=== PATIENT | female | born 1955 | race Caucasian/White ===

== ENCOUNTER 2020-06-07 07:46 | Inpatient (IN) | payer OTHER, MEDICARE ==
[2020-06-07] MEDS ORDERED: SODIUM CHLORIDE 0.9% 1,000 ML IV STA ×5 (08:10→14:58)
[2020-06-07] MEDS ORDERED: IPRATROPIUM-ALBUTEROL 3 ML NEB INHALATION STA (08:12)
--- NOTE | 2020-06-07 08:16 | ED ---
Altered Mental Status HPI - General Chief Complaint: Altered Mental Status Stated Complaint: pain all over Time Seen by Provider: 06/07/20 08:00 Source: patient, family, RN notes reviewed Mode of arrival: wheelchair Limitations: no limitations - History of Present Illness Initial Comments: This is a 64-year-old female history of chronic left shoulder pain who apparently is in the process of being worked up for chronic pain who started developing some dyspnea yesterday he has gotten progressively worse patient is also decreased activity decrease oral intake becoming confused this morning. She denies any fevers chills nausea vomiting sweats cough she does state that she's thirsty. She was noted upon arrival to triage that she was dusky including nailbeds. No other complaints or modifying factors at this time she is a smoker. MD Complaint: altered mental status, decreased responsiveness, other - Related Data Home Medications Medication Instructions Recorded Confirmed Acetaminophen/Diphenhydramine 1 tab PO HS PRN 06/07/20 06/07/20 [Tylenol PM 500-25mg] Atorvastatin Calcium [Lipitor] 10 mg PO DAILY 06/07/20 06/07/20 Balsalazide Disodium [Colazal] 1,500 mg PO AC-TID 06/07/20 06/07/20 Ibuprofen [Motrin Ib] 200 mg PO Q8H PRN 06/07/20 06/07/20 Methadone HCl [Methadone Intensol] 130 mg PO DAILY 06/07/20 06/07/20 Pregabalin [Lyrica] 200 mg PO TID 06/07/20 06/07/20 Allergies Allergy/AdvReac Type Severity Reaction Status Date / Time No Known Allergies Allergy Verified 06/07/20 09:10 Review of Systems ROS Statement: Those systems with pertinent positive or pertinent negative responses have been documented in the HPI. ROS Other: All systems not noted in ROS Statement are negative. Past Medical History Additional Past Medical History / Comment(s): arthritis History of Any Multi-Drug Resistant Organisms: None Reported Additional Past Surgical History / Comment(s): feet surgery Past Psychological History: No Psychological Hx Reported Smoking Status: Current every day smoker Past Alcohol Use History: None Reported Past Drug Use History: None Reported General Exam - General Exam Comments Initial Comments: Is a well-developed well-nourished awake alert but lethargic female Limitations: no limitations General appearance: alert, lethargic Head exam: Present: atraumatic, normocephalic, normal inspection Eye exam: Present: normal appearance, PERRL, EOMI. Absent: scleral icterus, conjunctival injection, periorbital swelling ENT exam: Present: mucous membranes dry Neck exam: Present: normal inspection, full ROM, other (No stridor JVD or bruits ). Absent: tenderness, meningismus, lymphadenopathy Respiratory exam: Present: decreased breath sounds (Diminished breath sounds especially on the right). Absent: respiratory distress, wheezes, rales, rhonchi, stridor Cardiovascular Exam: Present: normal rhythm, tachycardia, normal heart sounds, other (Thready pulses). Absent: systolic murmur, diastolic murmur, rubs, gallop, clicks GI/Abdominal exam: Present: soft, normal bowel sounds. Absent: distended, tenderness, guarding, rebound, rigid Extremities exam: Present: full ROM. Absent: tenderness, normal capillary refill, pedal edema, joint swelling, calf tenderness Back exam: Present: normal inspection Neurological exam: Present: alert, oriented X3, CN II-XII intact Psychiatric exam: Present: normal mood, flat affect Skin exam: Present: warm, dry, intact, cyanosis, other (In addition to cyanosis or was evidence of mottling to the extremities and to the anterior chest abdomen initially). Absent: rash Course Vital Signs 06/07/20 06/07/20 06/07/20 07:49 08:22 08:24 Temperature 96.2 F L Pulse Rate 128 H 128 H Respiratory 26 H 32 H Rate Blood Pressure 82/65 O2 Sat by Pulse 94 L Oximetry 06/07/20 06/07/20 06/07/20 08:40 09:30 10:36 Temperature Pulse Rate 128 H 125 H 126 H Respiratory 27 H 28 H 28 H Rate Blood Pressure 91/54 84/52 102/57 O2 Sat by Pulse 90 L 92 L 95 Oximetry 06/07/20 06/07/20 06/07/20 11:40 12:30 13:00 Temperature Pulse Rate 138 H 142 H 140 H Respiratory 35 H 35 H 28 H Rate Blood Pressure 105/90 126/108 79/35 O2 Sat by Pulse 90 L 88 L 94 L Oximetry 06/07/20 06/07/20 06/07/20 13:19 13:30 14:04 Temperature Pulse Rate 137 H 135 H 133 H Respiratory 30 H 31 H Rate Blood Pressure 99/36 67/51 112/72 O2 Sat by Pulse 96 Oximetry - Reevaluation(s) Reevaluation #1: 06/07/20 14:39 Patient was reevaluated on multiple occasions she initially did better with BiPAP however she later decompensated and did require oral tracheal intubation. Additionally her blood pressure was variable split of IV fluids she did require central line placement and IV pressors. Procedures - Central Line Placement Right Femoral Consent Obtained: emergent situation Patient Placed on Monitor/Pulse Ox: Yes MD Prep: mask, gown, gloves Central Line Prep: Chlorhexidine scrub Local Anesthesia Used: Lidocaine 1% Amount of Anesthesia Used (mls): 5 Ultrasound Used for Placement: No Central Line Lumen Inserted: triple Bloods Obtained for Lab: Yes Central Line Position: good blood return, all ports aspirated, flushed, capped, sutured in place with 3-0 nylon Dressing Applied: Tegaderm Patient Tolerated Procedure: well Complications: none - Intubation Sedative: Versed Mg Given: 2 Paralytic: Succinylcholine Mg Given: 90 Laryngoscope: fiber optic video scope (Number for quite scope) Size: 4 Assist Device Used: fiber optic device ET Tube Size: 7.5 ET Tube Uncuffed: No (cuffed) Tube Secured Depth (cm): 23 Tube Secured Location: lips Tube Placement Confirmation: visualized tube passing through cords, equal breath sounds bilaterally, no breath sounds over epigastrium, confirmation by capnometry Patient Tolerated Procedure: well Intubation Complications: none (Upper positions he had an x-ray prostate 2.5 cm above the christian) Medical Decision Making - Medical Decision Making I did discuss the case with the patient's as well as with Dr. Rutledge who did come the emergency department see the patient in addition Dr. Brandt. Patient will be admitted to ICU for continued evaluation and treatment. - Lab Data Result diagrams: 06/07/20 08:16 06/07/20 08:16 Lab Results 06/07/20 06/07/20 06/07/20 Range/Units 08:16 08:16 08:16 WBC 16.5 H (3.8-10.6) k/uL RBC 5.88 H (3.80-5.40) m/uL Hgb 15.0 (11.4-16.0) gm/dL Hct 48.8 H (34.0-46.0) % MCV 82.9 (80.0-100.0) fL MCH 25.5 (25.0-35.0) pg MCHC 30.7 L (31.0-37.0) g/dL RDW 16.1 H (11.5-15.5) % Plt Count 107 L (150-450) k/uL MPV 7.7 Neutrophils % 79 % Lymphocytes % 11 % Monocytes % 6 % Eosinophils % 3 % Basophils % 1 % Neutrophils # 13.0 H (1.3-7.7) k/uL Lymphocytes # 1.8 (1.0-4.8) k/uL Monocytes # 0.9 (0-1.0) k/uL Eosinophils # 0.4 (0-0.7) k/uL Basophils # 0.1 (0-0.2) k/uL Manual Slide Review Performed Polychromasia Present Hypochromasia Moderate Poikilocytosis Slight Poikilocytosis (manual Present Anisocytosis Slight PT 20.3 H (9.0-12.0) sec INR 2.1 H (<1.2) APTT 28.9 (22.0-30.0) sec D-Dimer >34.10 H (<0.60) mg/L FEU Sample Site ABG pH (7.35-7.45) ABG pCO2 (35-45) mmHg ABG pO2 (83-108) mmHg ABG HCO3 (21-25) mmol/L ABG Total CO2 (19-24) mmol/L ABG O2 Saturation (94-97) % ABG Base Excess mmol/L David Test FiO2 % Sodium 132 L (137-145) mmol/L Potassium 5.2 H (3.5-5.1) mmol/L Chloride 92 L (98-107) mmol/L Carbon Dioxide 25 (22-30) mmol/L Anion Gap 15 mmol/L BUN 30 H (7-17) mg/dL Creatinine 1.68 H (0.52-1.04) mg/dL Est GFR (CKD-EPI)AfAm 37 (>60 ml/min/1.73 sqM) Est GFR (CKD-EPI)NonAf 32 (>60 ml/min/1.73 sqM) Glucose 111 H (74-99) mg/dL POC Glucose (mg/dL) (75-99) mg/dL POC Glu Director Orange ID Lactic Ac Sepsis Rflx Plasma Lactic Acid Xavi (0.7-2.0) mmol/L Calcium 11.9 H (8.4-10.2) mg/dL Magnesium 2.3 (1.6-2.3) mg/dL Total Bilirubin 1.4 H (0.2-1.3) mg/dL AST 363 H (14-36) U/L ALT 77 H (4-34) U/L Alkaline Phosphatase 92 (38-126) U/L Creatine Kinase 249 H (30-135) U/L Troponin I (0.000-0.034) ng/mL NT-Pro-B Natriuret Pep pg/mL Total Protein 5.9 L (6.3-8.2) g/dL Albumin 3.1 L (3.5-5.0) g/dL Urine Color Urine Appearance (Clear) Urine pH (5.0-8.0) Ur Specific [place] (1.001-1.035) Urine Protein (Negative) Urine Glucose (UA) (Negative) Urine Ketones (Negative) Urine Blood (Negative) Urine Nitrite (Negative) Urine Bilirubin (Negative) Urine Urobilinogen (<2.0) mg/dL Ur Leukocyte Esterase (Negative) Urine RBC (0-5) /hpf Urine WBC (0-5) /hpf Ur Squamous Epith Cells (0-4) /hpf Amorphous Sediment (None) /hpf Urine Bacteria (None) /hpf Urine Mucus (None) /hpf Influenza Type A (PCR) (Not Detectd) Influenza Type B (PCR) (Not Detectd) RSV (PCR) (Not Detectd) SARS-CoV-2 (PCR) (Not Detectd) 06/07/20 06/07/20 06/07/20 Range/Units 08:16 08:16 08:16 WBC (3.8-10.6) k/uL RBC (3.80-5.40) m/uL Hgb (11.4-16.0) gm/dL Hct (34.0-46.0) % MCV (80.0-100.0) fL MCH (25.0-35.0) pg MCHC (31.0-37.0) g/dL RDW (11.5-15.5) % Plt Count (150-450) k/uL MPV Neutrophils % % Lymphocytes % % Monocytes % % Eosinophils % % Basophils % % Neutrophils # (1.3-7.7) k/uL Lymphocytes # (1.0-4.8) k/uL Monocytes # (0-1.0) k/uL Eosinophils # (0-0.7) k/uL Basophils # (0-0.2) k/uL Manual Slide Review Polychromasia Hypochromasia Poikilocytosis Poikilocytosis (manual Anisocytosis PT (9.0-12.0) sec INR (<1.2) APTT (22.0-30.0) sec D-Dimer (<0.60) mg/L FEU Sample Site ABG pH (7.35-7.45) ABG pCO2 (35-45) mmHg ABG pO2 (83-108) mmHg ABG HCO3 (21-25) mmol/L ABG Total CO2 (19-24) mmol/L ABG O2 Saturation (94-97) % ABG Base Excess mmol/L David Test FiO2 % Sodium (137-145) mmol/L Potassium (3.5-5.1) mmol/L Chloride (98-107) mmol/L Carbon Dioxide (22-30) mmol/L Anion Gap mmol/L BUN (7-17) mg/dL Creatinine (0.52-1.04) mg/dL Est GFR (CKD-EPI)AfAm (>60 ml/min/1.73 sqM) Est GFR (CKD-EPI)NonAf (>60 ml/min/1.73 sqM) Glucose (74-99) mg/dL POC Glucose (mg/dL) (75-99) mg/dL POC Glu Director Orange ID Lactic Ac Sepsis Rflx Plasma Lactic Acid Xavi 9.2 H* (0.7-2.0) mmol/L Calcium (8.4-10.2) mg/dL Magnesium (1.6-2.3) mg/dL Total Bilirubin (0.2-1.3) mg/dL AST (14-36) U/L ALT (4-34) U/L Alkaline Phosphatase (38-126) U/L Creatine Kinase (30-135) U/L Troponin I 7.560 H* (0.000-0.034) ng/mL NT-Pro-B Natriuret Pep 84981 pg/mL Total Protein (6.3-8.2) g/dL Albumin (3.5-5.0) g/dL Urine Color Urine Appearance (Clear) Urine pH (5.0-8.0) Ur Specific [place] (1.001-1.035) Urine Protein (Negative) Urine Glucose (UA) (Negative) Urine Ketones (Negative) Urine Blood (Negative) Urine Nitrite (Negative) Urine Bilirubin (Negative) Urine Urobilinogen (<2.0) mg/dL Ur Leukocyte Esterase (Negative) Urine RBC (0-5) /hpf Urine WBC (0-5) /hpf Ur Squamous Epith Cells (0-4) /hpf Amorphous Sediment (None) /hpf Urine Bacteria (None) /hpf Urine Mucus (None) /hpf Influenza Type A (PCR) (Not Detectd) Influenza Type B (PCR) (Not Detectd) RSV (PCR) (Not Detectd) SARS-CoV-2 (PCR) (Not Detectd) 06/07/20 06/07/20 06/07/20 Range/Units 08:28 08:32 08:56 WBC (3.8-10.6) k/uL RBC (3.80-5.40) m/uL Hgb (11.4-16.0) gm/dL Hct (34.0-46.0) % MCV (80.0-100.0) fL MCH (25.0-35.0) pg MCHC (31.0-37.0) g/dL RDW (11.5-15.5) % Plt Count (150-450) k/uL MPV Neutrophils % % Lymphocytes % % Monocytes % % Eosinophils % % Basophils % % Neutrophils # (1.3-7.7) k/uL Lymphocytes # (1.0-4.8) k/uL Monocytes # (0-1.0) k/uL Eosinophils # (0-0.7) k/uL Basophils # (0-0.2) k/uL Manual Slide Review Polychromasia Hypochromasia Poikilocytosis Poikilocytosis (manual Anisocytosis PT (9.0-12.0) sec INR (<1.2) APTT (22.0-30.0) sec D-Dimer (<0.60) mg/L FEU Sample Site ABG pH (7.35-7.45) ABG pCO2 (35-45) mmHg ABG pO2 (83-108) mmHg ABG HCO3 (21-25) mmol/L ABG Total CO2 (19-24) mmol/L ABG O2 Saturation (94-97) % ABG Base Excess mmol/L David Test FiO2 % Sodium (137-145) mmol/L Potassium (3.5-5.1) mmol/L Chloride (98-107) mmol/L Carbon Dioxide (22-30) mmol/L Anion Gap mmol/L BUN (7-17) mg/dL Creatinine (0.52-1.04) mg/dL Est GFR (CKD-EPI)AfAm (>60 ml/min/1.73 sqM) Est GFR (CKD-EPI)NonAf (>60 ml/min/1.73 sqM) Glucose (74-99) mg/dL POC Glucose (mg/dL) (75-99) mg/dL POC Glu Director Orange ID Lactic Ac Sepsis Rflx Y Plasma Lactic Acid Xavi (0.7-2.0) mmol/L Calcium (8.4-10.2) mg/dL Magnesium (1.6-2.3) mg/dL Total Bilirubin (0.2-1.3) mg/dL AST (14-36) U/L ALT (4-34) U/L Alkaline Phosphatase (38-126) U/L Creatine Kinase (30-135) U/L Troponin I (0.000-0.034) ng/mL NT-Pro-B Natriuret Pep pg/mL Total Protein (6.3-8.2) g/dL Albumin (3.5-5.0) g/dL Urine Color Dark Brown Urine Appearance Turbid H (Clear) Urine pH 5.0 (5.0-8.0) Ur Specific [place] 1.028 (1.001-1.035) Urine Protein 2+ H (Negative) Urine Glucose (UA) Trace H (Negative) Urine Ketones Negative (Negative) Urine Blood Large H (Negative) Urine Nitrite Negative (Negative) Urine Bilirubin 1+ H (Negative) Urine Urobilinogen 3.0 (<2.0) mg/dL Ur Leukocyte Esterase Small H (Negative) Urine RBC >182 H (0-5) /hpf Urine WBC 29 H (0-5) /hpf Ur Squamous Epith Cells 14 H (0-4) /hpf Amorphous Sediment Occasional H (None) /hpf Urine Bacteria Occasional H (None) /hpf Urine Mucus Occasional H (None) /hpf Influenza Type A (PCR) Not Detected (Not Detectd) Influenza Type B (PCR) Not Detected (Not Detectd) RSV (PCR) Not Detected (Not Detectd) SARS-CoV-2 (PCR) Not Detected (Not Detectd) 06/07/20 06/07/20 06/07/20 Range/Units 12:11 12:32 13:43 WBC (3.8-10.6) k/uL RBC (3.80-5.40) m/uL Hgb (11.4-16.0) gm/dL Hct (34.0-46.0) % MCV (80.0-100.0) fL MCH (25.0-35.0) pg MCHC (31.0-37.0) g/dL RDW (11.5-15.5) % Plt Count (150-450) k/uL MPV Neutrophils % % Lymphocytes % % Monocytes % % Eosinophils % % Basophils % % Neutrophils # (1.3-7.7) k/uL Lymphocytes # (1.0-4.8) k/uL Monocytes # (0-1.0) k/uL Eosinophils # (0-0.7) k/uL Basophils # (0-0.2) k/uL Manual Slide Review Polychromasia Hypochromasia Poikilocytosis Poikilocytosis (manual Anisocytosis PT (9.0-12.0) sec INR (<1.2) APTT (22.0-30.0) sec D-Dimer (<0.60) mg/L FEU Sample Site r rad ABG pH 7.28 L (7.35-7.45) ABG pCO2 47 H (35-45) mmHg ABG pO2 65 L (83-108) mmHg ABG HCO3 22 (21-25) mmol/L ABG Total CO2 23 (19-24) mmol/L ABG O2 Saturation 88.0 L (94-97) % ABG Base Excess -4.7 mmol/L David Test Yes FiO2 100 % Sodium (137-145) mmol/L Potassium (3.5-5.1) mmol/L Chloride (98-107) mmol/L Carbon Dioxide (22-30) mmol/L Anion Gap mmol/L BUN (7-17) mg/dL Creatinine (0.52-1.04) mg/dL Est GFR (CKD-EPI)AfAm (>60 ml/min/1.73 sqM) Est GFR (CKD-EPI)NonAf (>60 ml/min/1.73 sqM) Glucose (74-99) mg/dL POC Glucose (mg/dL) 90 (75-99) mg/dL POC Glu Director Orange ID Marguerite Saravia Lactic Ac Sepsis Rflx Plasma Lactic Acid Xavi 7.0 H* (0.7-2.0) mmol/L Calcium (8.4-10.2) mg/dL Magnesium (1.6-2.3) mg/dL Total Bilirubin (0.2-1.3) mg/dL AST (14-36) U/L ALT (4-34) U/L Alkaline Phosphatase (38-126) U/L Creatine Kinase (30-135) U/L Troponin I (0.000-0.034) ng/mL NT-Pro-B Natriuret Pep pg/mL Total Protein (6.3-8.2) g/dL Albumin (3.5-5.0) g/dL Urine Color Urine Appearance (Clear) Urine pH (5.0-8.0) Ur Specific [place] (1.001-1.035) Urine Protein (Negative) Urine Glucose (UA) (Negative) Urine Ketones (Negative) Urine Blood (Negative) Urine Nitrite (Negative) Urine Bilirubin (Negative) Urine Urobilinogen (<2.0) mg/dL Ur Leukocyte Esterase (Negative) Urine RBC (0-5) /hpf Urine WBC (0-5) /hpf Ur Squamous Epith Cells (0-4) /hpf Amorphous Sediment (None) /hpf Urine Bacteria (None) /hpf Urine Mucus (None) /hpf Influenza Type A (PCR) (Not Detectd) Influenza Type B (PCR) (Not Detectd) RSV (PCR) (Not Detectd) SARS-CoV-2 (PCR) (Not Detectd) - EKG Data -: EKG Interpreted by Me EKG Comments: Sinus tachycardia rate 128 AR 114 QRS duration 96 QT since QTC 300/438. Trinity and complete right bundle-branch block RVH evidence of old inferior changes as well as poor R-wave progression possible anterior infarct of undetermined age. - Radiology Data Radiology results: report reviewed (Initial imaging reviewed x-ray shows evidence of a elevated right hemidiaphragm with evidence of a small pleural eff usion no old ones for comparison), image reviewed Critical Care Time Critical Care Time: Yes Total Critical Care Time: 49 Disposition Clinical Impression: Acute respiratory failure, RLL pneumonia, Sepsis, COPD (chronic obstructive pulmonary disease), Hypotension, NSTEMI (non-ST elevated myocardial infarction) Disposition: ADMITTED IP TO THIS HOSP Condition: Critical Referrals: Hemal Vargas MD [Primary Care Provider] - 1-2 days
[2020-06-07 08:39] LABS: Anisocytosis Slight; Basophils # (A) 0.1 k/uL (0-0.2); Basophils % (A) 1 %; Eosinophils # (A) 0.4 k/uL (0-0.7); Eosinophils % (A) 3 %; HCT 48.8 % (34.0-46.0); Hypochromasia Moderate; Lymphocytes # (A) 1.8 k/uL (1.0-4.8); Lymphocytes % (A) 11 %; MCH 25.5 pg (25.0-35.0); MCHC 30.7 g/dL (31.0-37.0); MCV 82.9 fL (80.0-100.0); Mean Platelet Volume 7.7; Monocytes # (A) 0.9 k/uL (0-1.0); Monocytes % (A) 6 %; Neutrophils % (A) 79 %; Platelet Count 107 k/uL (150-450); Poikilocytosis Slight; RBC 5.88 m/uL (3.80-5.40); RDW 16.1 % (11.5-15.5); WBC 16.5 k/uL (3.8-10.6)
[2020-06-07 08:54] LABS: Albumin 3.1 g/dL (3.5-5.0); Calcium 11.9 mg/dL (8.4-10.2); Magnesium 2.3 mg/dL (1.6-2.3); Potassium 5.2 mmol/L (3.5-5.1); Total Bilirubin 1.4 mg/dL (0.2-1.3); Total Protein 5.9 g/dL (6.3-8.2)
[2020-06-07] MEDS ORDERED: cefTRIAXone IN SWFI 1,000 MG/10 ML SYRINGE IVP STA (09:17)
--- NOTE | 2020-06-07 09:17 | XR ---
EXAMINATION TYPE: XR chest 1V portable DATE OF EXAM: 06/07/2020 COMPARISON: NONE HISTORY: Difficulty in breathing. TECHNIQUE: Single frontal view of the chest is obtained. FINDINGS: The osseous structures are somewhat demineralized. Cardiac silhouette size is likely enlar ged. Silhouetting right heart border with elevated right hemidiaphragm. Chronic parenchymal changes w ith multifocal bilateral opacities. Overlying EKG leads. IMPRESSION: Difficult to assess without prior study for comparison. Elevated right hemidiaphragm. Garcia spected at least small right pleural effusion. Cardiomegaly and chronic parenchymal changes with mult ifocal opacities bilaterally. Correlate to exclude covid-19 infection in current environment. Correlation with old outside x-ray would be beneficial.
[2020-06-07] MEDS ORDERED: methylPREDNISolone SOD SUCCI 125 MG/2 ML VIAL IV STA (09:19)
[2020-06-07 09:33] LABS: INR 2.1 (<1.2); Prothrombin Time 20.3 sec (9.0-12.0)
[2020-06-07 09:34] LABS: Partial Thromboplastin Time 28.9 sec (22.0-30.0)
[2020-06-07 10:04] LABS: D-Dimer >34.10 mg/L FEU (<0.60)
[2020-06-07] MEDS ORDERED: HEPARIN SODIUM 1,000 UN/ML (10ML VL) IV ONE (10:05)
[2020-06-07] MEDS ORDERED: HEPARIN SODIUM 1,000 UN/ML (10ML VL) IV PRN (10:05)
[2020-06-07] MEDS ORDERED: HEPARIN SOD,PORK IN 0.45% NACL 25,000 UNIT in 0.45% NACL 1 250ML.BAG IV SCH (10:15)
[2020-06-07 10:59] LABS: Amorphous Sediment,Urine Occasional /hpf; Appearance,Urine Turbid (Clear); Bacteria,Urine Occasional /hpf; Bilirubin,Urine 1+ (Negative); Blood,Urine Large (Negative); Color,Urine Dark Brown; Glucose,Urine (UA) Trace (Negative); Ketones,Urine Negative (Negative); Leukocyte Esterase,Urine Small (Negative); Mucus,Urine Occasional /hpf; Nitrite,Urine Negative (Negative); Protein,Urine 2+ (Negative); RBC,Urine >182 /hpf (0-5); Specific Gravity,Urine 1.028 (1.001-1.035); Squamous Epithelial Cell,Urine 14 /hpf (0-4); WBC,Urine 29 /hpf (0-5)
[2020-06-07] MEDS ORDERED: LORazepam 2 MG/ML INJ IV STA (11:12)
[2020-06-07 11:25] LABS: Poikilocytosis (M) Present; Polychromasia Present
[2020-06-07] MEDS ORDERED: diphenhydrAMINE 50 MG/ML 1 ML VIAL IVP STA (11:42)
[2020-06-07] MEDS ORDERED: fentaNYL (PF) 50 MCG/ML 2 ML AMP IV STA (11:43)
[2020-06-07] MEDS ORDERED: VANCOMYCIN IV PER PHARMACY 1 EACH MISC MISCELLANE PRN (12:26)
[2020-06-07] MEDS ORDERED: LORazepam 2 MG/ML INJ IV PRN (12:28)
[2020-06-07] MEDS ORDERED: BALSALAZIDE DISODIUM 750 MG CAPSULE PO SCH (12:30)
[2020-06-07 12:37] LABS: ABG Base Excess -4.7 mmol/L; ABG HCO3 22 mmol/L (21-25); ABG PCO2 47 mmHg (35-45); ABG PH 7.28 (7.35-7.45); ABG PO2 65 mmHg (83-108); ABG TCO2 23 mmol/L (19-24); Allen Test Performed? Yes
--- NOTE | 2020-06-07 12:41 | CT ---
EXAMINATION TYPE: CT angio chest DATE OF EXAM: 06/07/2020 COMPARISON: HISTORY: Shortness of breath. CT DLP: 514.3 mGycm CONTRAST: CT chest with contrast and 3D reconstruction with MIP imaging is performed with IV Contrast, patient injected with 65 mL of Isovue 370. Contrast-enhanced CT of the chest was performed through the course of the pulmonary arteries with zander g and mediastinal window settings submitted. 3D reconstruction with MIP imaging was also performed. PULMONARY ARTERIES: The pulmonary arteries and their major tributaries are patent. I do not see shaheen dence for sizable filling defect to suggest pulmonary embolic process. LUNGS: Large area of right lower lobe atelectasis and/or infiltrate difficult with the moderate sized pleural effusion. Scattered areas of the groundglass infiltrate right upper lobe and to a lesser ext ent left upper lobe. MEDIASTINUM: Nonaneurysmal thoracic aorta. The heart is enlarged. No evidence for mediastinal mass. Paratracheal adenopathy measuring up to 2.5 cm. HILAR STRUCTURES: No evidence for mass. No hilar lymph nodes greater than 1 cm. UPPER ABDOMEN: No significant abnormality is seen. IMPRESSION: 1. No evidence for Pulmonary embolism at this time. 2.Large area of right lower lobe atelectasis and/or infiltrate difficult with the moderate sized pleu ral effusion. Scattered areas of the groundglass infiltrate right upper lobe and to a lesser extent l eft upper lobe.
[2020-06-07] MEDS ORDERED: SUCCINYLCHOLINE CHLORIDE VIAL 200 MG/10 ML VIAL IV STA (12:45)
[2020-06-07] MEDS ORDERED: MIDAZOLAM 1 MG/ML 5 ML VIAL IV STA (12:45)
[2020-06-07] MEDS ORDERED: VANCOMYCIN 1,500 MG in SODIUM CHLORIDE 0.9% 250 ML IVPB STA (12:50)
--- NOTE | 2020-06-07 13:17 | XR ---
EXAMINATION TYPE: XR chest 1V DATE OF EXAM: 06/07/2020 HISTORY: Intubation COMPARISON: 06/07/2020 TECHNIQUE: Single view of the chest is submitted. FINDINGS: Endotracheal tube is appropriately placed and is approximately 2.8 cm from the christian. The stomach is seen coursing into the stomach. Patchy infiltrates are seen throughout both lung gibson right greater than left with a right-sided pl eural effusion. Hilar and mediastinal structures are within normal limits. Degenerative changes are seen of the dorsal spine. IMPRESSION: 1. Indwelling tubes and catheters as noted.
[2020-06-07] MEDS: NOREPINEPHRINE 4 MG in SODIUM CHLORIDE 0.9% 250 ML IV ONE ×3 (13:50→22:21)
[2020-06-07 14:04] LABS: Glucose,Whole Blood 90 mg/dL (75-99)
[2020-06-07] MEDS ORDERED: NALOXONE 0.4 MG/ML 1 ML VIAL IV PRN (14:47)
[2020-06-07] MEDS ORDERED: PIPERACILLIN-TAZOBACTAM 3.375 GM in SODIUM CHLORIDE 0.9% 100 ML IVPB STA (15:01)
[2020-06-07 15:09] LABS: Allen Test Performed? Yes
[2020-06-07] MEDS: ACETAMINOPHEN SUPPOSITORY 650 MG SUPP RECTAL PRN ×2 (15:12→22:34)
[2020-06-07] MEDS ORDERED: PREGABALIN 100 MG CAP PO SCH (16:00)
[2020-06-07] MEDS ORDERED: IPRATROPIUM-ALBUTEROL 3 ML NEB INHALATION SCH ×2 (16:00→20:00)
[2020-06-07 16:11] LABS: ABG Base Excess -7.5 mmol/L; ABG HCO3 22 mmol/L (21-25); ABG Oxygen Saturation 81.8 % (94-97); ABG PCO2 63 mmHg (35-45); ABG PO2 63 mmHg (83-108); ABG TCO2 23 mmol/L (19-24)
[2020-06-07 16:13] LABS: ABG PH 7.14 (7.35-7.45)
[2020-06-07] MEDS ORDERED: IPRATROPIUM-ALBUTEROL 3 ML NEB INHALATION PRN (16:45)
--- NOTE | 2020-06-07 16:57 | P.HPIM ---
History of Present Illness 64-year-old female came in with complains of chronic left shoulder and neck pain. Patient was later found to be hypoxic was subsequently started on BiPAP. Patient clinical condition has worsened progressively was subsequently intub ated. Patient the has been getting confused at home. Patient is on very high- dose of opiates at home which includes methadone 130 milligrams on daily basis. Patient does smoke. Does have wheezing on exam. Patient had an ABG which showed hypoxic respiratory failure and repeat ABG showed acute hypoxic as well as hypercapnic respiratory failure patient is found to be severely acidotic with highly elevated lactic acid of around 7.1, at bedtime troponin is elevated as well which was around 10.. Patient had a chest x-ray which showed groundglass a paced is appears to have pulmonary edema with highly elevated BNP of 27,500 although patient will require IV fluids patient was given bolus of IV fluids as followed by one 20 mL of normal saline at this time patient is hyponatremic acute renal failure with creatinine of 1.68. Urine is bit abnormal with positive leukocyte esterase highly elevated RBCs white blood cell count of 29 squabbles inferior cells 14 which is consistent with contaminated sample. Chest x-ray showing right-sided pleural effusion patient had a CT angios the chest because of highly elevated d-dimer, CT did not show any pulmonary embolism but had significant a pleural effusion on the right side with some atelectasis no obvious lobar infiltrate was evident on the CAT scan. Was given Rocephin and will be started on broad-spectrum antibiotic Zosyn and vancomycin. Patient later on started having fevers. Patient was tested for Covid 19 which was negative. Patient is presently on norepinephrine. Review of Systems Review of systems: Most of the review of systems unable to obtain due to patient's clinical condition patient although not intubated when I initially evaluated the patient is quite a bit drowsy and unable to provide any history. Past Medical History Additional Past Medical History / Comment(s): arthritis History of Any Multi-Drug Resistant Organisms: None Reported Additional Past Surgical History / Comment(s): feet surgery Past Psychological History: No Psychological Hx Reported Smoking Status: Current every day smoker Past Alcohol Use History: None Reported Past Drug Use History: None Reported Medications and Allergies Home Medications Medication Instructions Recorded Confirmed Type Acetaminophen/Diphenhydramine 1 tab PO HS PRN 06/07/20 06/07/20 History [Tylenol PM 500-25mg] Atorvastatin Calcium [Lipitor] 10 mg PO DAILY 06/07/20 06/07/20 History Balsalazide Disodium [Colazal] 1,500 mg PO AC-TID 06/07/20 06/07/20 History Ibuprofen [Motrin Ib] 200 mg PO Q8H PRN 06/07/20 06/07/20 History Methadone HCl [Methadone Intensol] 130 mg PO DAILY 06/07/20 06/07/20 History Pregabalin [Lyrica] 200 mg PO TID 06/07/20 06/07/20 History Allergies Allergy/AdvReac Type Severity Reaction Status Date / Time No Known Allergies Allergy Verified 06/07/20 09:10 Physical Exam Vitals: Vital Signs Temp Pulse Resp BP Pulse Ox 06/07/20 16:31 140 H 34 H 113/78 85 L 06/07/20 16:00 98.6 F 141 H 32 H 97/64 06/07/20 15:30 99.9 F H 140 H 32 H 120/76 06/07/20 14:53 100.4 F H 141 H 30 H 130/89 06/07/20 14:04 133 H 31 H 112/72 06/07/20 13:30 135 H 67/51 06/07/20 13:19 137 H 30 H 99/36 96 06/07/20 13:00 140 H 28 H 79/35 94 L 06/07/20 12:30 142 H 35 H 126/108 88 L 06/07/20 11:40 138 H 35 H 105/90 90 L 06/07/20 10:36 126 H 28 H 102/57 95 06/07/20 09:30 125 H 28 H 84/52 92 L 06/07/20 08:40 128 H 27 H 91/54 90 L 06/07/20 08:24 128 H 32 H 82/65 94 L 06/07/20 08:22 128 H 26 H 06/07/20 07:49 96.2 F L Intake and Output 06/07/20 06/07/20 06/07/20 06:59 14:59 22:59 Intake Total 60.947 Balance 60.947 Intake: Intake, IV Titration 60.947 Amount Norepinephrine 4 mg In 51.068 Sodium Chloride 0.9% 250 ml @ 0.05 MCG/KG/MIN 15. 554 mls/hr IV .[id number] [facility] Rx#:[id number] propofoL 1,000 mg In 9.879 Empty Bag 1 bag @ Titrate IV .Q0M [facility] Rx#: [id number] Other: Weight 81.647 kg PHYSICAL EXAMINATION: GENERAL: Patient is drowsy is in respiratory distress, patient was subsequently intubated and sedated HEENT: Pupils are round and equally reacting to light. EOMI. No scleral icterus. No conjunctival pallor. Normocephalic, atraumatic. No pharyngeal erythema. No thyromegaly. CARDIOVASCULAR: S1 and S2 present. No murmurs, rubs, or gallops. PULMONARY: Mild expiratory wheezing bilaterally ABDOMEN: Soft, nontender, nondistended, normoactive bowel sounds. No palpable organomegaly. MUSCULOSKELETAL: No joint swelling or deformity. EXTREMITIES: No cyanosis, clubbing, or pedal edema. NEUROLOGICAL: Unable to assess due to her clinical condition patient is later on intubated and sedated SKIN: No rashes. Results CBC & Chem 7: 06/07/20 08:16 06/07/20 08:16 Labs: Abnormal Lab Results - Last 24 Hours (Table) 06/07/20 06/07/20 06/07/20 Range/Units 08:16 08:16 08:16 WBC 16.5 H (3.8-10.6) k/uL RBC 5.88 H (3.80-5.40) m/uL Hct 48.8 H (34.0-46.0) % MCHC 30.7 L (31.0-37.0) g/dL RDW 16.1 H (11.5-15.5) % Plt Count 107 L (150-450) k/uL Neutrophils # 13.0 H (1.3-7.7) k/uL PT 20.3 H (9.0-12.0) sec INR 2.1 H (<1.2) APTT (22.0-30.0) sec D-Dimer >34.10 H (<0.60) mg/L FEU ABG pH (7.35-7.45) ABG pCO2 (35-45) mmHg ABG pO2 (83-108) mmHg ABG O2 Saturation (94-97) % Sodium 132 L (137-145) mmol/L Potassium 5.2 H (3.5-5.1) mmol/L Chloride 92 L (98-107) mmol/L BUN 30 H (7-17) mg/dL Creatinine 1.68 H (0.52-1.04) mg/dL Glucose 111 H (74-99) mg/dL Plasma Lactic Acid Xavi (0.7-2.0) mmol/L Calcium 11.9 H (8.4-10.2) mg/dL Total Bilirubin 1.4 H (0.2-1.3) mg/dL AST 363 H (14-36) U/L ALT 77 H (4-34) U/L Creatine Kinase 249 H (30-135) U/L Troponin I (0.000-0.034) ng/mL Total Protein 5.9 L (6.3-8.2) g/dL Albumin 3.1 L (3.5-5.0) g/dL Urine Appearance (Clear) Urine Protein (Negative) Urine Glucose (UA) (Negative) Urine Blood (Negative) Urine Bilirubin (Negative) Ur Leukocyte Esterase (Negative) Urine RBC (0-5) /hpf Urine WBC (0-5) /hpf Ur Squamous Epith Cells (0-4) /hpf Amorphous Sediment (None) /hpf Urine Bacteria (None) /hpf Urine Mucus (None) /hpf 06/07/20 06/07/20 06/07/20 Range/Units 08:16 08:16 08:32 WBC (3.8-10.6) k/uL RBC (3.80-5.40) m/uL Hct (34.0-46.0) % MCHC (31.0-37.0) g/dL RDW (11.5-15.5) % Plt Count (150-450) k/uL Neutrophils # (1.3-7.7) k/uL PT (9.0-12.0) sec INR (<1.2) APTT (22.0-30.0) sec D-Dimer (<0.60) mg/L FEU ABG pH (7.35-7.45) ABG pCO2 (35-45) mmHg ABG pO2 (83-108) mmHg ABG O2 Saturation (94-97) % Sodium (137-145) mmol/L Potassium (3.5-5.1) mmol/L Chloride (98-107) mmol/L BUN (7-17) mg/dL Creatinine (0.52-1.04) mg/dL Glucose (74-99) mg/dL Plasma Lactic Acid Xavi 9.2 H* (0.7-2.0) mmol/L Calcium (8.4-10.2) mg/dL Total Bilirubin (0.2-1.3) mg/dL AST (14-36) U/L ALT (4-34) U/L Creatine Kinase (30-135) U/L Troponin I 7.560 H* (0.000-0.034) ng/mL Total Protein (6.3-8.2) g/dL Albumin (3.5-5.0) g/dL Urine Appearance Turbid H (Clear) Urine Protein 2+ H (Negative) Urine Glucose (UA) Trace H (Negative) Urine Blood Large H (Negative) Urine Bilirubin 1+ H (Negative) Ur Leukocyte Esterase Small H (Negative) Urine RBC >182 H (0-5) /hpf Urine WBC 29 H (0-5) /hpf Ur Squamous Epith Cells 14 H (0-4) /hpf Amorphous Sediment Occasional H (None) /hpf Urine Bacteria Occasional H (None) /hpf Urine Mucus Occasional H (None) /hpf 06/07/20 06/07/20 06/07/20 Range/Units 12:11 12:32 15:42 WBC (3.8-10.6) k/uL RBC (3.80-5.40) m/uL Hct (34.0-46.0) % MCHC (31.0-37.0) g/dL RDW (11.5-15.5) % Plt Count (150-450) k/uL Neutrophils # (1.3-7.7) k/uL PT (9.0-12.0) sec INR (<1.2) APTT 61.5 H (22.0-30.0) sec D-Dimer (<0.60) mg/L FEU ABG pH 7.28 L (7.35-7.45) ABG pCO2 47 H (35-45) mmHg ABG pO2 65 L (83-108) mmHg ABG O2 Saturation 88.0 L (94-97) % Sodium (137-145) mmol/L Potassium (3.5-5.1) mmol/L Chloride (98-107) mmol/L BUN (7-17) mg/dL Creatinine (0.52-1.04) mg/dL Glucose (74-99) mg/dL Plasma Lactic Acid Xavi 7.0 H* (0.7-2.0) mmol/L Calcium (8.4-10.2) mg/dL Total Bilirubin (0.2-1.3) mg/dL AST (14-36) U/L ALT (4-34) U/L Creatine Kinase (30-135) U/L Troponin I (0.000-0.034) ng/mL Total Protein (6.3-8.2) g/dL Albumin (3.5-5.0) g/dL Urine Appearance (Clear) Urine Protein (Negative) Urine Glucose (UA) (Negative) Urine Blood (Negative) Urine Bilirubin (Negative) Ur Leukocyte Esterase (Negative) Urine RBC (0-5) /hpf Urine WBC (0-5) /hpf Ur Squamous Epith Cells (0-4) /hpf Amorphous Sediment (None) /hpf Urine Bacteria (None) /hpf Urine Mucus (None) /hpf 06/07/20 06/07/20 Range/Units 15:42 16:00 WBC (3.8-10.6) k/uL RBC (3.80-5.40) m/uL Hct (34.0-46.0) % MCHC (31.0-37.0) g/dL RDW (11.5-15.5) % Plt Count (150-450) k/uL Neutrophils # (1.3-7.7) k/uL PT (9.0-12.0) sec INR (<1.2) APTT (22.0-30.0) sec D-Dimer (<0.60) mg/L FEU ABG pH 7.14 L* (7.35-7.45) ABG pCO2 63 H (35-45) mmHg ABG pO2 63 L (83-108) mmHg ABG O2 Saturation 81.8 L (94-97) % Sodium (137-145) mmol/L Potassium (3.5-5.1) mmol/L Chloride (98-107) mmol/L BUN (7-17) mg/dL Creatinine (0.52-1.04) mg/dL Glucose (74-99) mg/dL Plasma Lactic Acid Xavi 5.6 H* (0.7-2.0) mmol/L Calcium (8.4-10.2) mg/dL Total Bilirubin (0.2-1.3) mg/dL AST (14-36) U/L ALT (4-34) U/L Creatine Kinase (30-135) U/L Troponin I (0.000-0.034) ng/mL Total Protein (6.3-8.2) g/dL Albumin (3.5-5.0) g/dL Urine Appearance (Clear) Urine Protein (Negative) Urine Glucose (UA) (Negative) Urine Blood (Negative) Urine Bilirubin (Negative) Ur Leukocyte Esterase (Negative) Urine RBC (0-5) /hpf Urine WBC (0-5) /hpf Ur Squamous Epith Cells (0-4) /hpf Amorphous Sediment (None) /hpf Urine Bacteria (None) /hpf Urine Mucus (None) /hpf Microbiology - Last 24 Hours (Table) 06/07/20 08:32 Urine Culture - Preliminary Urine,Voided Assessment and Plan Plan: -Septic shock: Primary source is not clear can be pneumonia patient will be continue on IV fluids patient will be continued on pressor support. Patient the is presently on vancomycin and Zosyn. Infectious disease will be consulted patient has a pleural effusion on the right side he can be parapneumonic effusion although no clear evident lobar pneumonia and may be significant atelectasis secondary to pleural effusion. Pulmonology will evaluate the patient. All the cultures are pending -Metabolic acidosis and respiratory acidosis: Patient has respiratory acidosis, anion metabolic acidosis and compensatory metabolic alkalosis. Patient does have lactic acidosis secondary to sepsis -Hypovolemic hyponatremia secondary to sepsis -Acute renal failure possibility of acute tubular necrosis from sepsis -Shock liver with elevated liver enzymes liver enzymes will be monitored -Elevated INR and d-dimer secondary to severe sepsis and disseminated intravascular coagulation. Other management as per asset management coordinator -Elevated troponin most probably secondary to sepsis although non-ST elevation myocardial infarction cannot be ruled out patient is presently not on IV heparin as her INR is around 2.0 -Diffuse groundglass opacities and possible pulmonary edema on the computed tomography scan of the chest, probably secondary to sepsis-induced cardiomyopathy. Echocardiogram will be obtained -Possible COPD with exacerbation patient will be started on inhaled steroids inhalational treatments -Ruled out COVID-19 -Nicotine abuse -GI prophylaxis with IV Pepcid Her overall prognosis is poor
[2020-06-07] MEDS: SODIUM CHLORIDE 0.9% 1,000 ML IV SCH (18:16)
[2020-06-07 18:48] LABS: Glucose,Whole Blood 111 mg/dL (75-99)
--- NOTE | 2020-06-07 19:56 | CONS ---
CONSULTATION PULMONARY/CRITICAL CARE CONSULTATION: HISTORY OF PRESENT ILLNESS: This is a 64-year-old female that I went down to the emergency room to see. I was just recently called by Dr. Mac Daniel down there about this patient. Anyway, the patient apparently came into the emergency room this morning at 7:46 am. She came in with complaints of chronic left shoulder pain, and mental status changes. In addition to that, she developed shortness of breath beginning the day before admission which got progressively worse. She had impaired mental status, decreased activity, and poor oral intake and was quite confused according to her . The patient was down there for quite some time and initially she was placed on BiPAP and apparently did well initially but then crashed and she needed to be intubated. According to the ER kwame here, the patient initially had very dusky nailbeds. Anyway, she is currently on the ventilator. She looks really quite bad. She is mottled from her toes all the way up to her mid chest area. Her extremities are very cool. She has significant livedo reticularis. The patient apparently sees Dr. Vargas as a primary, according to her who is at the bedside. She is on the ventilator. She is on the volume assist-control mode rate of 20 with a spontaneous rate of 34, tidal volume 400, FiO2 100%, PEEP of 5. Blood gases prior to intubation on BiPAP at 12/6 and 100% showed a pO2 of 65, pCO2 of 47, pH of 7.28. Currently, she is not on anything for sedation, she is quite dyssynchronous with the ventilator. She is on norepinephrine at 0.05 mcg/kg/per minute. She has received 3 L of fluid in the emergency department. I see that IV vancomycin is hanging. Diprivan has not yet been started. I did ask the nurse to go ahead and give her some additional volume, and if her blood pressure remains low, to go up on the Levophed to 1mcg/kg/minute, if need be. HOME MEDICATIONS: Include Tylenol with Benadryl, Lipitor, Colazal, ibuprofen, methadone and Lyrica. ALLERGIES: Denied. MEDICAL HISTORY: Apparently positive for arthritis, and irritable bowel syndrome as well as hyperlipidemia. SURGICAL HISTORY: Includes previous foot surgery. SOCIAL HISTORY: Positive for ongoing tobacco use. Apparently no alcohol use or illicit drug use according to the ER kwame. FAMILY HISTORY: Could not be obtained. does not really provide any additional information other than saying that Dr. Valdes is her doctor, she has been going downhill for quite some time, and that she is on methadone. REVIEW OF SYSTEMS: Could not really be obtained and he did not provide very much detail other than the fact that she was doing poorly over the last couple of weeks. PHYSICAL EXAMINATION: VITAL SIGNS: Current vital signs are reviewed. Temperature is a 100.4, pulse 141, respiratory rate 34, blood pressure 130 systolic. Saturations are in the mid 90s. Again she appears quite mottled. She is very dyssynchronous with the ventilator. She has an orally placed endotracheal tube. HEENT: Examination is grossly unremarkable. NECK: Supple. CARDIOVASCULAR EXAMINATION: Reveals tachycardia. Heart sounds are distant. LUNGS: Reveal diffuse coarse rhonchi. ABDOMEN: Obese. No bowel sounds. EXTREMITIES: Are cool. There is no edema to speak of. SKIN: Without rash. There is diffuse mottling and livedo reticularis all the way up to the mid abdominal and even lower chest area. NEUROLOGIC: Examination can obviously not be evaluated at this time. LAB DATA: Reviewed. White count 16.5, hemoglobin 15, hematocrit 48.8, platelet count 107,000. PT 20.3, INR 2.1, PTT 28.9. D-dimer is greater than 34.10. Blood gases before intubation were noted. Sodium 132, potassium 5.2, chloride 92, CO2 25, anion gap is 15. BUN and creatinine were 30 and 1.68. Lactic acid 7, calcium 11.9, bilirubin 1.4, AST 363, ALT 77, troponin 7.560. N terminal proBNP 27,500. Urine is suggestive of a possible urinary tract infection. COVID testing was negative. Influenza A and B testing were negative. IMAGING: Chest x-ray shows consolidation and loss of volume in the right lung. CT shows significant volume loss and consolidation with right-sided pleural reaction. The left lung remains relatively clear. No evidence of pulmonary embolism on CT angiogram. Repeat chest x-ray after intubation shows an endotracheal tube about 3 cm above the tracheal christian. There are diffuse bilateral infiltrates, certainly much worse on the right side, with a right-sided pleural effusion. CURRENT MEDICATIONS: Include Tylenol for fever control, Lipitor, updrafts, Ativan, methadone, Narcan, norepinephrine, Zosyn, Lyrica, propofol and vancomycin. ASSESSMENT: 1. Acute hypoxemic respiratory failure secondary to right lower lobe pneumonia with right-sided pleural effusion, potentially parapneumonic in nature. 2. Septic shock, with profound hypotension, status post 3 L of fluid and norepinephrine. 3. Anion gap metabolic acidosis. 4. No evidence of pulmonary embolism on CT angiogram. 5. Mild hyponatremia. 6. Acute kidney injury. 7. Lactic acidemia. 8. Elevated troponin, rule out myocardial ischemia. 9. Possible shock liver. 10.Possible urinary tract infection. 11.History of hyperlipidemia. 12.History of irritable bowel syndrome. 13.Chronically on methadone therapy. PLAN: Some of these unnecessary medications will be discontinued. Hopefully find a bed for the patient in the ICU eventually. She does have a central line in place. Will eventually need an arterial line. I did give instructions for additional fluids and vasopressors in the emergency department. I also am awaiting the repeat blood gases, and I asked Iza, the respiratory therapist, to increased the rate on the ventilator to 34 breaths per minute. Prognosis is very poor. I did tell the that there was a good chance the patient would not survive. MMCASSIEL / JULIAN: [id number] / MTDD
[2020-06-07] MEDS ORDERED: BUDESONIDE 0.5 MG/2 ML NEBU INHALATION SCH (20:00)
[2020-06-07] MEDS ORDERED: diphenhydrAMINE 25 MG CAP PO PRN (21:00)
[2020-06-07] MEDS ORDERED: ACETAMINOPHEN TAB 500 MG TAB PO PRN (21:00)
[2020-06-07 23:46] LABS: Glucose,Whole Blood 102 mg/dL (75-99)
[2020-06-07 23:53] VITALS: TEMP 99.1
[2020-06-08] MEDS ORDERED: PIPERACILLIN-TAZOBACTAM 3.375 GM in SODIUM CHLORIDE 0.9% 100 ML IVPB SCH ×2
[2020-06-08] MEDS: NOREPINEPHRINE 4 MG in SODIUM CHLORIDE 0.9% 250 ML IV ONE ×2 (02:05→04:09)
[2020-06-08] MEDS: LACTATED RINGERS 1,000 ML IV SCH ×2 (02:05→02:37)
[2020-06-08] MEDS: SODIUM CHLORIDE 0.9% 1,000 ML IV SCH (02:06)
[2020-06-08] MEDS ORDERED: LACTATED RINGERS 1,000 ML IV SCH (02:15)
[2020-06-08] MEDS ORDERED: FUROSEMIDE 10 MG/ML 4 ML VIAL IV STA (03:36)
[2020-06-08 04:58] LABS: Anisocytosis Slight; HCT 48.3 % (34.0-46.0); HGB 14.6 gm/dL (11.4-16.0); Hypochromasia Marked; MCH 25.5 pg (25.0-35.0); MCHC 30.2 g/dL (31.0-37.0); MCV 84.4 fL (80.0-100.0); Mean Platelet Volume 6.7; Poikilocytosis Slight; RBC 5.73 m/uL (3.80-5.40); RDW 17.2 % (11.5-15.5)
[2020-06-08 05:02] LABS: Albumin 2.3 g/dL (3.5-5.0); Calcium 9.6 mg/dL (8.4-10.2); Potassium 5.3 mmol/L (3.5-5.1); Total Bilirubin 2.1 mg/dL (0.2-1.3); Total Protein 4.7 g/dL (6.3-8.2)
[2020-06-08 05:48] VITALS: PULSE 149
[2020-06-08] MEDS ORDERED: NOREPINEPHRINE 8 MG in SODIUM CHLORIDE 0.9% 250 ML IV SCH (06:15)
[2020-06-08 06:16] LABS: ABG Base Excess -14.7 mmol/L; ABG HCO3 15 mmol/L (21-25); ABG PCO2 54 mmHg (35-45); ABG PO2 69 mmHg (83-108); ABG TCO2 17 mmol/L (19-24); Allen Test Performed? Yes
[2020-06-08 06:19] LABS: ABG PH 7.07 (7.35-7.45)
[2020-06-08 06:34] LABS: Band Neutrophils % 33 %; Metamyelocytes % 1 %; Myelocytes % 1 %; Neutrophils % (M) 59 %; Nucleated Red Blood Cells 1 /100 WBC (0-0); Total Cells Counted 200
[2020-06-08 06:35] LABS: Metamyelocytes # (M) 0.22 k/uL (0); Monocytes # (M) 0.67 k/uL (0-1.0); Myelocytes # (M) 0.22 k/uL (0); WBC 22.4 k/uL (3.8-10.6)
[2020-06-08 06:37] LABS: Polychromasia Present
[2020-06-08 06:39] LABS: Large Platelets Present
[2020-06-08 06:41] LABS: Crenated RBC Present
[2020-06-08 06:42] LABS: RBC Fragments Present
[2020-06-08 06:44] LABS: Platelet Count 22 k/uL (150-450)
[2020-06-08] MEDS ORDERED: DEXTROSE 5% IN WATER 1,000 ML with SODIUM BICARB (1 MEQ/ML) 150 ML IV SCH (07:00)
[2020-06-08 07:05] VITALS: BP 92/22; RESP 36
--- NOTE | 2020-06-08 07:41 | XR ---
EXAMINATION TYPE: XR chest 1V portable DATE OF EXAM: 06/08/2020 CLINICAL HISTORY: Difficulty breathing progress study. TECHNIQUE: Single AP portable semiupright view of the chest is obtained. COMPARISON: Chest x-rays and CTA chest from one day earlier FINDINGS: Slight retraction of endotracheal tube now terminating just above the aortic knob. Stable appearance oral gastric tube. Background chronic parenchymal change suspected with persistent left mi d to lower lung opacity. Cardiac silhouette size is stable and within normal limits. Developing left basilar atelectasis is noted. There is irregularities in the region of the left shoulder, corresponding CT in retrospect shows dest ructive mass involving the left scapula extending towards the AC joint. IMPRESSION: 1. Chronic emphysematous change with left basilar atelectasis. There is small to moderate right pleur al effusion with right mid to lower lung consolidation and/or atelectasis. When correlating with rece nt CT I suspect a central right hilar mass or neoplasm, I suspect left shoulder osseous metastatic di sease. There are bilateral adrenal masses identified in retrospect suspicious for metastatic disease. Case discussed with the patient's ICU nurse via telephone at time of dictation. I was told patient pa ssed away roughly 30 minutes earlier. A Document Only message has been documented for Jose David Brandt DO in the [employer] system on 06/08/2020 7:38 AM, Message ID [id number].
--- NOTE | 2020-06-08 08:04 | P.EN ---
I responded to CODE BLUE called by nursing staff on patient around 7:13. Patient had a cardiac arrest and high quality CPR was started by nursing staff. Initial pulse check showed ventricular fibrillation and patient received shock with resumption of high quality CPR. Patient received multiple doses of IV epinephrine and an amp of bicarb and was maintained on a bicarb drip overnight. I reviewed her chart and spoke to her daughter and her . Patient was admitted to hospital with severe sepsis, septic shock, acute hypoxic and hypercapnic respiratory failure. Nursing staff informed me that patient was recently diagnosed with metastatic cancer to the bone of unknown origin. This was confirmed by her daughter on the phone. After extensive effort with continuous high quality CPR, patient remained asystole on each pulse check. Eventually her arrived to the room and decided to terminate the resuscitation effort around 7:32 AM. Please refer to the code sheet for details
[2020-06-08] MEDS ORDERED: ATORVASTATIN 10 MG TAB PO SCH (09:00)
[2020-06-08] MEDS ORDERED: VANCOMYCIN 1,500 MG in SODIUM CHLORIDE 0.9% 250 ML IVPB SCH (09:00)
[2020-06-08] MEDS ORDERED: METHADONE 10 MG TAB PO SCH (09:00)
--- NOTE | 2020-06-08 11:31 | CDI ---
Documentation Clarification Form Date: 06/08/2020 11:06:06 AM From: Marissa Flores RN, CCDS Admit Date: 06/07/2020 02:47:00 PM Patient Name: Philly Houston Visit Number: [id number] Discharge Date: 06/08/2020 11:00:00 AM ATTENTION: The Clinical Documentation Specialists (CDI) and [facility] Coding Staff appreciate your assistance in clarifying documentation. Please respond to the clarification below the line at the bottom and electronically sign. The CDI & [facility] Coding staff will review the response and follow-up if needed. Please note: Queries are made part of the Legal Health Record. If you have any questions, please contact the author of this message via ITS. Dr. Rojelio Rutledge Your patient has the documented symptom of Altered Mental Status in 06/07 in the ED note with decreased responsiveness. Additional clarification regarding the etiology/cause of this symptom is requested in a patient with Sepsis and septic shock to accurately reflect SOI/ROM History/Risk Factors: Arthritis, recent diagnosis of metastatic bone cancer, chronic methadone use, smoker, COPD Clinical Indicators: 06/07 ED note: "This is a 64-year-old female history of chronic left shoulder pain who apparently is in the process of being worked up for chronic pain who started developing some dyspnea yesterday he has gotten progressively worse patient is also decreased activity decrease oral intake becoming confused this morning." 06/07 Pulmonary consult: "She had impaired mental status, decreased activity, and poor oral intake and was quite confused according to her ." 06/07 H&P: "Patient has been getting confused at home. Patient is on very high- dose of opiates at home which includes methadone 130 milligrams on daily basis. Patient does smoke. Sepsis with septic shock, JAN with ATN, Shock liver, NSTEMI" 06/07-06/08 Labs: WBC 16.5/22.4, Neutrophils 13/20.6, D-dimer 34.1, K+ 5.2/5.3, BUN 30/40, Cr. 1.68/2.08, Plasma lactic acid 4.6/5.2, ast 363/6822, alt , CK 249, troponin 7.56/9.35, BNP [id number] 06/08 CXR: Chronic emphysematous change with left basilar atelectasis. There is small to moderate right pleural effusion with right mid to lower lung consolidation and/or atelectasis. When correlating with recent CT I suspect a central right hilar mass or neoplasm, I suspect left shoulder osseous metastatic disease. There are bilateral adrenal masses identified in retrospect suspicious for metastatic disease." CT Chest: "No evidence for Pulmonary embolism at this time. Large area of right lower lobe atelectasis and/or infiltrate difficult with the moderate sized pleural effusion. Scattered areas of the groundglass infiltrate right upper lobe and to a lesser extent left upper lobe. Treatment: Pt was placed on Mechanical ventilator upon arrival to EC 06/07 Ceftriaxone 2Gm IVPB OT 06/07 4L 0.9% NS IVF bolus followed by 130 cc/hr. 06/08 LR 2L IVF bolus 06/07 IVPB Vanco 1500 mg IVPB OT 06/07 1mg IVP Ativan 06/07 Zosyn 3.375 IVPB q8hrs. Please clarify the etiology of the symptom of Altered Mental Status: [ ] (please specify) [ ] Metabolic Encephalopathy due to (please specify) [ ] Other condition (please specify) [ ] Unable to determine (Template Last Revised: March 2020) Toxic Encephalopathy due to sepsis MTDD
[2020-06-08 13:52] LABS: Hemoglobin A1C 6.3 % (4.0-6.0)
--- NOTE | 2020-06-08 18:37 | P.DS ---
Providers Date of admission: 06/07/20 14:47 Attending physician: Rojelio Rutledge Consults: 06/07/20 14:47 Consult Physician Stat Consulting Provider: Jose David Brandt Consult Reason/Comments: Actue respiratory failure, ventilator management Do you want consulting provider notified?: Already Contacted Consult Physician Urgent Consulting Provider: Enma Oneill Consult Reason/Comments: NSTEMI, CHF Do you want consulting provider notified?: Yes 06/07/20 16:44 Consult Physician Routine Consulting Provider: Tremaine Vo Consult Reason/Comments: severe sepsis Do you want consulting provider notified?: Yes Primary care physician: Hemal Vargas [facility] Course: Patient was admitted yesterday for acute respiratory failure septic shock source was considered to be secondary to pneumonia. Patient had a CT angios the chest which was later updated as patient has significant metastatic disease possibly of lung cancer. Patient coded earlier today morning. CPR was initiated and the arrived to the room and decided today made the resuscitation and patient around 7:32 AM. Patient Condition at Discharge: Critical Plan - Discharge Summary Discharge Rx Participant: No New Discharge Prescriptions: No Action Acetaminophen/Diphenhydramine [Tylenol PM 500-25mg] 1 tab PO HS PRN PRN Reason: Pain Ibuprofen [Motrin Ib] 200 mg PO Q8H PRN PRN Reason: Pain Balsalazide Disodium [Colazal] 1,500 mg PO AC-TID Atorvastatin Calcium [Lipitor] 10 mg PO DAILY Pregabalin [Lyrica] 200 mg PO TID Methadone HCl [Methadone Intensol] 130 mg PO DAILY Discharge Medication List Acetaminophen/Diphenhydramine [Tylenol PM 500-25mg] 1 tab PO HS PRN 06/07/20 [Hi story] Atorvastatin Calcium [Lipitor] 10 mg PO DAILY 06/07/20 [History] Balsalazide Disodium [Colazal] 1,500 mg PO AC-TID 06/07/20 [History] Ibuprofen [Motrin Ib] 200 mg PO Q8H PRN 06/07/20 [History] Methadone HCl [Methadone Intensol] 130 mg PO DAILY 06/07/20 [History] Pregabalin [Lyrica] 200 mg PO TID 06/07/20 [History] Follow up Appointment(s)/Referral(s): Hemal Vargas MD [Primary Care Provider] - 1-2 days Discharge Disposition: - Preliminary Cause of Preliminary Cause of : Septic shock from pneumonia, possible metastatic lung cancer
== END 2020-06-08 11:00 | disposition expired | DRG 871 ==
LOC: EC 07:46 → 2SICU 14:47
PROVIDERS: ADMIT Internal Medicine; ATTEND Internal Medicine
PROC: 3E043XZ Introduction of Vasopressor into Central Vein, Percutaneous Approach (ICD-10-PCS; principal; 2020-06-07)
PROC: 0BH17EZ Insertion of Endotracheal Airway into Trachea, Via Natural or Artificial Opening (ICD-10-PCS; principal; 2020-06-07)
PROC: 5A09357 Assistance with Respiratory Ventilation, Less than 24 Consecutive Hours, Continuous Positive Airway Pressure (ICD-10-PCS; principal; 2020-06-07)
PROC: 5A1935Z Respiratory Ventilation, Less than 24 Consecutive Hours (ICD-10-PCS; principal; 2020-06-07)
PROC: 06HM33Z Insertion of Infusion Device into Right Femoral Vein, Percutaneous Approach (ICD-10-PCS; principal; 2020-06-07)
PROC: 5A12012 Performance of Cardiac Output, Single, Manual (ICD-10-PCS; 2020-06-08)
DX: A41.9 Sepsis, unspecified organism (principal); J96.01 Acute respiratory failure with hypoxia; J96.02 Acute respiratory failure with hypercapnia; N17.0 Acute kidney failure with tubular necrosis; I21.4 Non-ST elevation (NSTEMI) myocardial infarction; R65.21 Severe sepsis with septic shock; K72.00 Acute and subacute hepatic failure without coma; D65 Disseminated intravascular coagulation [defibrination syndrome]; G92 Toxic encephalopathy; J18.9 Pneumonia, unspecified organism; J91.8 Pleural effusion in other conditions classified elsewhere; J44.0 Chronic obstructive pulmonary disease with (acute) lower respiratory infection; J44.1 Chronic obstructive pulmonary disease with (acute) exacerbation; C79.51 Secondary malignant neoplasm of bone; E87.4 Mixed disorder of acid-base balance; I42.8 Other cardiomyopathies; E87.1 Hypo-osmolality and hyponatremia; C34.90 Malignant neoplasm of unspecified part of unspecified bronchus or lung; J98.11 Atelectasis; N39.0 Urinary tract infection, site not specified; I46.8 Cardiac arrest due to other underlying condition; I49.01 Ventricular fibrillation; Z20.822 Contact with and (suspected) exposure to COVID-19; E86.1 Hypovolemia; E78.5 Hyperlipidemia, unspecified; K58.9 Irritable bowel syndrome, unspecified; G89.29 Other chronic pain; M54.2 Cervicalgia; M25.512 Pain in left shoulder; F17.200 Nicotine dependence, unspecified, uncomplicated; M19.90 Unspecified osteoarthritis, unspecified site; Z79.891 Long term (current) use of opiate analgesic; Z79.899 Other long term (current) drug therapy
CPT/HCPCS: 31500; 36415; 36556; 36600; 71045; 71275; 80053; 81001; 82550; 82805; 83036; 83605; 83735; 83880; 84484; 85025; 85379; 85610; 85730; 87040; 87070; 87086; 87205; 87636; 92950; 93005; 94002; 94003; 94640; 94660; 96361; 96365; 96366; 96367; 96375; 99291